=== PATIENT | female | born 1940 ===

== ENCOUNTER 2020-08-18 14:38 | Emergency (ER) | payer MEDICARE, OTHER ==
--- NOTE | 2020-08-18 14:44 | ERPHSYRPT ---
- History of Present Illness Time Seen by Provider: 08/18/20 14:43 Historian: patient, family, EMS Exam Limitations: clinical condition (Patient has history of Alzheimer's dementia) Physician History: This is a 80-year-old white female with a history of, hypertension, ga stroesophageal reflux disease, Alzheimer dementia, hypothyroidism, coronary artery disease with myocardial infarction x3, atrial fibrillation and is on Plavix and presents to the emergency department via EMS with complaint of chest pain and heart racing. The chest pain is described as sharp, left anterior chest with radiation into her back and into the left shoulder and up the left side of her neck. She rates her pain a 7 out of 10. Patient has no prior EKG or chest x-ray records available to me at this time. Timing/Duration: today Activities at Onset: none Quality: sharpness Location: other (Left anterior chest) Chest Pain Radiation: neck, arm (Left shoulder) Severity of Pain-Max: moderate Severity of Pain-Current: moderate Modifying Factors: Improves With: nothing Associated Symptoms: denies symptoms Prior Chest Pain/Cardiac Workup: cardiac cath, heart attack Nitro Today/Relief: no nitro taken today Aspirin Treatment Today: no aspirin today Allergies/Adverse Reactions: latex Allergy (Intermediate, Verified 08/18/20 14:56) Rash morphine Allergy (Mild, Verified 08/18/20 14:56) pain at site of administration meperidine [From Demerol] Allergy (Unknown, Verified 08/18/20 14:56) Penicillins Allergy (Unknown, Verified 08/18/20 14:56) as child pt unsure of reaction Home Medications: Citalopram Hydrobromide [Celexa] 10 mg PO DAILY 05/24/19 [History] Clopidogrel Bisulfate 75 mg [PLAVIX 75 MG Tablet] 75 mg PO DAILY 05/24/19 [History] Diphenhydramine HCl 25 mg [Benadryl 25 mg Capsule] 25 mg PO HS 05/24/19 [History] Levothyroxine Sodium 200 mcg PO DAILY 05/24/19 [History] Meloxicam 7.5 mg [Mobic 7.5 MG] 7.5 mg PO BID 05/24/19 [History] Omeprazole 40 mg PO BID 05/24/19 [History] Potassium Chloride 10 Meq Tab* [Klor Con 10 MEQ] 20 meq PO DAILY 05/24/19 [History] Torsemide [Demadex] 10 mg PO DAILY 05/24/19 [History] Trospium Chloride [Sanctura] 10 mg PO BID 05/24/19 [History] atenoloL [Atenolol] 25 mg PO DAILY 08/18/20 [History] Travel Risk - International Travel Have you traveled outside of the country in past 3 weeks: No - Coronavirus Screening Are you exhibiting any of the following symptoms?: No Close contact with a COVID-19 positive Pt in past 14-21 Days: No - Review of Systems Constitutional: No Symptoms Eyes: No Symptoms Ears, Nose, & Throat: No Symptoms Respiratory: No Symptoms Cardiac: Chest Pain Abdominal/Gastrointestinal: No Symptoms Genitourinary Symptoms: No Symptoms Musculoskeletal: No Symptoms Skin: No Symptoms Neurological: No Symptoms Psychological: No Symptoms Endocrine: No Symptoms Hematologic/Lymphatic: No Symptoms Immunological/Allergic: No Symptoms All Other Systems: Reviewed and Negative - Past Medical History Pertinent Past Medical History: Yes Neurological History: No Pertinent History ENT History: Cataracts Cardiac History: Deep Vein Thrombosis, Hypertension, Other Respiratory History: No Pertinent History Endocrine Medical History: Hypothyroidism Musculoskeletal History: Arthritis GI Medical History: GERD, Hernia History: Other Psycho-Social History: Depression Female Reproductive Disorders: No Pertinent History Other Medical History: mitral valve prolapse - Past Surgical History Past Surgical History: Yes Neuro Surgical History: No Pertinent History Cardiac: Cardiac Catheterization Respiratory: No Pertinent History Gastrointestinal: Hernia Repair Genitourinary: Other Musculoskeletal: Amputation, Joint Replacement, Orthopedic Surgery, Prosthesis, Other Female Surgical History: Hysterectomy Other Surgical History: R BKA, implant in jaw, bilateral carpal tunnel, bilateral rotator cuff repair, left total knee replacement, hiatal hernia repair, "stomach pulled out of chest". gangloin cyst removed from wrist. bladder tied up - Social History Smoking Status: Former smoker Exposure to second hand smoke: No Drug Use: none - Nursing Vital Signs Nursing Vital Signs: Initial Vital Signs Temperature 98.5 F 08/18/20 14:40 Pulse Rate 135 H 08/18/20 14:40 Respiratory Rate 27 H 08/18/20 14:40 Blood Pressure 154/122 08/18/20 14:40 O2 Sat by Pulse Oximetry 92 L 08/18/20 14:40 Pain Scale Pain Intensity 4 - Physical Exam General Appearance: mild distress, alert, anxiety Eye Exam: PERRL/EOMI, eyes nml inspection Ears, Nose, Throat Exam: normal ENT inspection, moist mucous membranes Neck Exam: normal inspection, non-tender, supple, full range of motion Respiratory Exam: normal breath sounds, chest tenderness, lungs clear, airway intact, No respiratory distress Cardiovascular Exam: tachycardia, irregular Gastrointestinal/Abdomen Exam: soft, normal bowel sounds, No tenderness Pelvic Exam: not done Rectal Exam: not done Back Exam: normal inspection, normal range of motion, No CVA tenderness, No vertebral tenderness Extremity Exam: normal inspection (Left leg), normal range of motion (Left leg), pelvis stable, other (Right below the knee amputation) Neurologic Exam: alert, oriented x 3, cooperative, resource program teacher II-XII nml as tested, normal mood/affect, sensation nml Skin Exam: normal color, warm, dry Lymphatic Exam: No adenopathy SpO2 Interpretation: borderline oxygenation O2 Delivery: Room Air - Course Nursing assessment & vital signs reviewed: Yes EKG Interpreted by Me: RATE (142), A-fib, Other (Multiple ventricular premature complexes present. No acute ischemic changes on today's EKG. There is no comparison EKG available.) Ordered Tests: Active Orders 24 hr Category Date Time Status Glassware Selector STAT Care 08/18/20 14:48 Active EKG-ER Only STAT Care 08/18/20 14:47 Active IV Insertion STAT Care 08/18/20 14:47 Active Pulse Oximetry (ED) STAT Care 08/18/20 14:47 Active CHEST 1 VIEW (PORTABLE) Stat Exams 08/18/20 14:48 Completed CHEST WITH CONTRAST [CT] Stat Exams 08/18/20 16:31 Taken CBC W DIFF Stat Lab 08/18/20 15:40 Completed CMP Stat Lab 08/18/20 15:40 Completed D-DIMER QUANTITATIVE Stat Lab 08/18/20 15:40 Completed NT PRO BNP Stat Lab 08/18/20 15:40 Completed PROTIME WITH INR Stat Lab 08/18/20 15:40 Completed TROPONIN Q3H Lab 08/18/20 15:40 Completed TROPONIN Q3H Lab 08/18/20 18:00 Ordered TROPONIN Q3H Lab 08/18/20 21:00 Ordered TROPONIN Q3H Lab 08/19/20 00:00 Ordered TROPONIN Q3H Lab 08/19/20 03:00 Ordered TSH [TSH, 3RD Generation] Stat Lab 08/18/20 15:40 Completed Medication Summary Generic Name Dose Route Start Last Admin Trade Name Freq PRN Reason Stop Dose Admin Diltiazem HCl 100 mls @ 5 mls/hr 08/18/20 18:10 Cardizem Drip 100 Mg/100 Ml D5w IV 09/17/20 18:09 .Q20H PRN HEART RATE/ A-FIB Protocol 5 MG/HR Discontinued Medications Generic Name Dose Route Start Last Admin Trade Name Freq PRN Reason Stop Dose Admin Aspirin 324 mg 08/18/20 14:47 08/18/20 15:04 Baby Aspirin 81 Mg Chew PO 08/18/20 14:48 Not Given STAT ONE Aspirin Confirm 08/18/20 15:03 Baby Aspirin 81 Mg Chew Administered 08/18/20 15:04 Dose 324 mg .ROUTE .STK-MED ONE Diltiazem HCl 15 mg 08/18/20 15:39 08/18/20 15:43 Cardizem Iv 50 Mg/10 Ml IV 08/18/20 15:40 15 mg STAT ONE Administration Diltiazem HCl Confirm 08/18/20 15:42 Cardizem Iv 50 Mg/10 Ml Administered 08/18/20 15:43 Dose 50 mg IV .STK-MED ONE Furosemide 40 mg 08/18/20 16:31 Lasix 40 Mg/4 Ml IV 08/18/20 16:32 STAT ONE Metoprolol Tartrate 5 mg 08/18/20 14:59 08/18/20 15:05 Lopressor 5 Mg/5 Ml Injection IV 08/18/20 15:00 5 mg STAT ONE Administration Metoprolol Tartrate Confirm 08/18/20 15:03 Lopressor 5 Mg/5 Ml Injection Administered 08/18/20 15:04 Dose 5 mg IV .STK-MED ONE Morphine Sulfate Confirm 08/18/20 15:10 Morphine Sulfate 2 Mg Inj Administered 08/18/20 15:11 Dose 2 mg .ROUTE .STK-MED ONE Morphine Sulfate 2 mg 08/18/20 15:14 08/18/20 15:15 Morphine Sulfate 2 Mg Inj IV 08/18/20 15:15 2 mg STAT ONE Administration Ondansetron HCl Confirm 08/18/20 15:10 Zofran 4 Mg/2 Ml Vial Administered 08/18/20 15:11 Dose 4 mg .ROUTE .STK-MED ONE Ondansetron HCl 4 mg 08/18/20 15:14 08/18/20 15:15 Zofran 4 Mg/2 Ml Vial IV 08/18/20 15:15 4 mg STAT ONE Administration Lab/Rad Data: Laboratory Result Diagrams 08/18/20 15:40 08/18/20 15:40 Laboratory Results 08/18/20 08/18/20 08/18/20 Range/Units 15:40 15:40 15:40 WBC (4.0-10.5) K/mm3 RBC (4.1-5.4) M/mm3 Hgb (12.0-16.0) gm/dl Hct (35-47) % MCV (78-100) fl MCH (26-32) pg MCHC (32-36) g/dl RDW (11.5-14.0) % Plt Count (150-450) K/mm3 MPV (7.5-11.0) fl Gran % (36.0-66.0) % Eos # (Auto) (0-0.5) Absolute Lymphs (auto) (1.0-4.6) Absolute Monos (auto) (0.0-1.3) Lymphocytes % (24.0-44.0) % Monocytes % (0.0-12.0) % Eosinophils % (0.00-5.0) % Basophils % (0.0-0.4) % Absolute Granulocytes (1.4-6.9) Basophils # (0-0.4) PT 16.6 H (9.95-12.35) SECONDS INR 1.46 (0.8-3.0) D-Dimer 1467 H* (215-500) ng/mL Sodium (137-145) mmol/L Potassium (3.5-5.1) mmol/L Chloride (98-107) mmol/L Carbon Dioxide (22-30) mmol/L Anion Gap (5-15) MEQ/L BUN (7-17) mg/dL Creatinine (0.52-1.04) mg/dL Estimated GFR ML/MIN Glucose (74-106) mg/dL Calcium (8.4-10.2) mg/dL Total Bilirubin (0.2-1.3) mg/dL AST (14-36) U/L ALT (0-35) U/L Alkaline Phosphatase (38-126) U/L Troponin I 0.016 (0.000-0.034) ng/mL NT-Pro-B Natriuret Pep (0-1800) pg/mL Serum Total Protein (6.3-8.2) g/dL Albumin (3.5-5.0) g/dL TSH 3rd Generation < 0.015 L (0.47-4.68) mIU/L Slides for Path Review 08/18/20 08/18/20 Range/Units 15:40 15:40 WBC 9.3 (4.0-10.5) K/mm3 RBC 3.87 L (4.1-5.4) M/mm3 Hgb 8.2 L (12.0-16.0) gm/dl Hct 28.1 L (35-47) % MCV 72.6 L (78-100) fl MCH 21.2 L (26-32) pg MCHC 29.2 L (32-36) g/dl RDW 21.2 H (11.5-14.0) % Plt Count 297 (150-450) K/mm3 MPV 10.6 (7.5-11.0) fl Gran % 70.8 H (36.0-66.0) % Eos # (Auto) 0.15 (0-0.5) Absolute Lymphs (auto) 1.59 (1.0-4.6) Absolute Monos (auto) 0.93 (0.0-1.3) Lymphocytes % 17.1 L (24.0-44.0) % Monocytes % 10.0 (0.0-12.0) % Eosinophils % 1.6 (0.00-5.0) % Basophils % 0.5 (0.0-0.4) % Absolute Granulocytes 6.58 (1.4-6.9) Basophils # 0.05 (0-0.4) PT (9.95-12.35) SECONDS INR (0.8-3.0) D-Dimer (215-500) ng/mL Sodium 135 L (137-145) mmol/L Potassium 3.9 (3.5-5.1) mmol/L Chloride 101 (98-107) mmol/L Carbon Dioxide 24 (22-30) mmol/L Anion Gap 13.2 (5-15) MEQ/L BUN 25 H (7-17) mg/dL Creatinine 0.96 (0.52-1.04) mg/dL Estimated GFR 59.6 ML/MIN Glucose 103 (74-106) mg/dL Calcium 8.9 (8.4-10.2) mg/dL Total Bilirubin 0.90 (0.2-1.3) mg/dL AST 98 H (14-36) U/L ALT 75 H (0-35) U/L Alkaline Phosphatase 99 (38-126) U/L Troponin I (0.000-0.034) ng/mL NT-Pro-B Natriuret Pep 32437 H (0-1800) pg/mL Serum Total Protein 6.3 (6.3-8.2) g/dL Albumin 3.8 (3.5-5.0) g/dL TSH 3rd Generation (0.47-4.68) mIU/L Slides for Path Review YES - Progress Progress: improved, re-examined Air Movement: good Progress Note: 08/18/20 15:13 The patient has had morphine in the past and it caused some itching and "she did not like the way it made her feel". There was no obvious rash at the time of the injection. We will give a low dose of 2 mg intravenously of morphine and watch her closely. Patient has had a cardiac catheterization that was performed at [facility] in [facility]. 08/18/20 18:23 Medical decision making: This patient does have coronary artery disease and has cardiac history of atrial fibrillation and congestive heart failure. Patient presented with chest pain as well as a sensation her heart was racing. She does have chronic A. fib but she has rapid ventricular response. She is maintaining her blood pressure in the normal range. She also has some anemia that is worse than 6 months ago with no site of bleeding. Her thyroid TSH level is very low. We are awaiting the T4 level to return. I spoke with Dr. Salvador at [facility] emergency department. I reviewed the patient history, condition, EKG findings, lab results and results of the CAT scan with contrast of the chest. I reported to him that the patient has moderate bilateral pleural effusions. No visible acute pulmonary emboli are present. There is no specific signs of pneumonitis or pneumonia. He is aware that the patient received Lasix 40 mg intravenously. And that the patient will be arriving to his facility with a Horta catheter in place and on a Cardizem drip. Blood Culture(s) Obtained: No Antibiotics given: No Counseled pt/family regarding: lab results, diagnosis, rad results - Departure Departure Disposition: Transfer Clinical Impression: Atrial fibrillation with RVR, CHF (congestive heart failure), Pleural effusion due to CHF (congestive heart failure), Anemia Condition: Fair Critical Care Time: Yes Critical Care Time(excluding separately billable procedures): Critical 30-74 mins Referrals: ZENA SANZ [NON-STAFF PHY W/O PRIVILEGES] - Instructions: Heart Failure
[2020-08-18] MEDS ORDERED: BABY ASPIRIN 81 MG CHEW PO ONE (14:47)
[2020-08-18] MEDS ORDERED: LOPRESSOR 5 MG/5 ML INJECTION IV ONE ×4 (14:59→19:18)
[2020-08-18] MEDS ORDERED: BABY ASPIRIN 81 MG CHEW ONE (15:03)
[2020-08-18] MEDS ORDERED: MORPHINE SULFATE 2 MG INJ ONE (15:10)
[2020-08-18] MEDS ORDERED: Zofran 4 MG/2 ML VIAL ONE (15:10)
[2020-08-18] MEDS ORDERED: MORPHINE SULFATE 2 MG INJ IV ONE (15:14)
[2020-08-18] MEDS ORDERED: Zofran 4 MG/2 ML VIAL IV ONE (15:14)
[2020-08-18] MEDS ORDERED: Cardizem IV 50 MG/10 ML IV ONE ×2 (15:39→15:42)
[2020-08-18 15:48] LABS: Absolute Neutrophil Ct (ANC) 6.58 (1.4-6.9); BASOPHIL % 0.5 % (0.0-0.4); Basophil (Absolute #) 0.05 (0-0.4); Eosinophil % 1.6 % (0.00-5.0); Eosinophil (Absolute #) 0.15 (0-0.5); Hematocrit 28.1 % (35-47); Hemoglobin 8.2 gm/dl (12.0-16.0); Lymphocyte (Absolute #) 1.59 (1.0-4.6); Lymphocytes % 17.1 % (24.0-44.0); Mean Cell Volume 72.6 fl (78-100); Mean Corpuscular Hemoglobin 21.2 pg (26-32); Mean Corpuscular Hgb Concent. 29.2 g/dl (32-36); Mean Platelet Volume 10.6 fl (7.5-11.0); Monocyte (Absolute #) 0.93 (0.0-1.3); Neutrophil % 70.8 % (36.0-66.0); Platelet Count 297 K/mm3 (150-450); Red Blood Count 3.87 M/mm3 (4.1-5.4); Red Cell Distribution Width 21.2 % (11.5-14.0); White Blood Count 9.3 K/mm3 (4.0-10.5)
[2020-08-18 16:20] LABS: INR 1.46 (0.8-3.0); PROTIME 16.6 SECONDS (9.95-12.35)
[2020-08-18 16:21] LABS: ALBUMIN 3.8 g/dL (3.5-5.0); ANION GAP 13.2 MEQ/L (5-15); BILIRUBIN,TOTAL 0.9 mg/dL (0.2-1.3); Calcium 8.9 mg/dL (8.4-10.2); Creatinine 1 0.96 mg/dL (0.52-1.04); EST GLOMERULAR FILTRATION RATE 59.6 ML/MIN; Potassium 3.9 mmol/L (3.5-5.1); Total Protein 6.3 g/dL (6.3-8.2)
[2020-08-18] MEDS ORDERED: Lasix 40 MG/4 ML IV ONE (16:31)
[2020-08-18 17:31] LABS: Slide Review 1 YES
--- NOTE | 2020-08-18 17:42 | XRAY ---
Indication: Chest pain and short of breath. Comparison: None Portable chest demonstrates borderline cardiomegaly, central vascular prominence, and small bibasilar effusions favoring cardiac decompensation/CHF. Superimposed pneumonia not complete excluded. Bony thorax demonstrates osteopenia, degenerative changes, and distal bilateral clavicle resection.
[2020-08-18] MEDS ORDERED: CARDIZEM DRIP 100 MG/100 ML D5W 100 ML IV PRN (18:10)
[2020-08-18] MEDS ORDERED: Lasix 40 MG/4 ML ONE (18:23)
[2020-08-18] MEDS ORDERED: CARDIZEM DRIP 100 MG/100 ML D5W 100 ML IV ONE (18:44)
[2020-08-18 21:11] VITALS: O2SAT 95
[2020-08-18 21:12] VITALS: BP 123/91; PULSE 102
--- NOTE | 2020-08-18 21:19 | XRAY ---
Indication: Chest pain. Elevated d-dimer. Multiple contiguous axial images obtained through the chest using 80 cc Isovue-370 contrast and PE protocol. Comparison: None. There is good opacification of the pulmonary arteries to include the lobar and segmental branches. No pulmonary embolus. Heart is borderline enlarged. Aorta is mildly arteriosclerotic without aneurysm/dissection. Tiny left hilar calcified node. No pathologic mediastinal/hilar lymphadenopathy. Moderate-sized hiatal hernia. Lungs demonstrates moderate bilateral pleural effusions with mild bibasilar compressive atelectasis. Inferior lingula subsegmental atelectasis/scarring. Remaining aerated lungs are clear. Bony thorax demonstrates osteopenia and mild/moderate degenerative changes throughout the spine. Limited upper abdomen demonstrates incompletely visualized 6.5 cm right renal cyst and 1.7 cm left renal cyst. Also 3.5 cm wide mouth epigastric ventral hernia defect with herniated loop of transverse colon without incarceration/obstruction. Impression: 1. Negative pulmonary embolus. 2. Borderline cardiomegaly with moderate bilateral effusions. Rule out cardiac decompensation/CHF. 3. Incidental hiatal hernia, bilateral renal cysts, epigastric ventral hernia with herniated colon, and chronic bony findings. Comment: Preliminary interpretation was made by [facility]. No critical discrepancy.
== END 2020-08-18 22:00 | disposition short-term general hospital (02) ==
LOC: ED 14:38
DX: I48.91 Unspecified atrial fibrillation (principal); I50.9 Heart failure, unspecified; J90 Pleural effusion, not elsewhere classified; G30.0 Alzheimer's disease with early onset; F02.80 Dementia in other diseases classified elsewhere, unspecified severity, without behavioral disturbance, psychotic disturbance, mood disturbance, and anxiety; I10 Essential (primary) hypertension; K21.9 Gastro-esophageal reflux disease without esophagitis; I25.10 Atherosclerotic heart disease of native coronary artery without angina pectoris; Z79.899 Other long term (current) drug therapy; Z86.718 Personal history of other venous thrombosis and embolism
CPT/HCPCS: 36000; 36415; 51702; 71045; 71260; 80053; 83880; 84436; 84443; 84484; 85025; 85379; 85610; 93005; 93041; 94760; 96365; 96366; 96374; 96375; 96376; 99285; 99291; J1940; J2270; J2405; A9270-GY